=== PATIENT | female | born 1980 | race Caucasian/White ===

== ENCOUNTER 2021-11-19 11:55 | Observation (INO) | payer OTHER ==
[~2021-11-19] VITALS: Ht 160 cm; Wt 98.9 kg
== END 2021-11-19 13:25 | disposition home or self-care (01) ==
LOC: SPU 11:55
PROVIDERS: ADMIT Obstetrics & Gynecology; ATTEND Obstetrics & Gynecology
DX: O36.8130 Decreased fetal movements, third trimester, not applicable or unspecified (principal); O42.92 Full-term premature rupture of membranes, unspecified as to length of time between rupture and onset of labor; Z3A.37 37 weeks gestation of pregnancy
CPT/HCPCS: 81002; G0378

== ENCOUNTER 2021-11-20 10:36 | Inpatient (IN) | payer OTHER, SELFPAY ==
[~2021-11-20] VITALS: Ht 160 cm; Wt 98.9 kg
[2021-11-20] MEDS ORDERED: AMPICILLIN SODIUM 2 GM VIAL ONE (11:11)
[2021-11-20] MEDS ORDERED: AMPICILLIN SODIUM 2 GM in NS 100 ML IV ONE (11:15)
[2021-11-20] MEDS ORDERED: NALBUPHINE HCL 10 MG/ML AMP IVP PRN (11:15)
[2021-11-20] MEDS ORDERED: LR 1,000 ML IV SCH (11:15)
[2021-11-20] MEDS ORDERED: TERBUTALINE SULFATE 1 MG/ML VIAL SUBCUT ONE (11:15)
[2021-11-20] MEDS ORDERED: OXYTOCIN/0.9 % SODIUM CHLORIDE 1,000 ML IV SCH (11:15)
[2021-11-20 11:34] LABS: BASOPHILS # (AUTO) 0.2 K/uL (0.0-0.2); BASOPHILS % (AUTO) 1.9 % (0.0-2.0); EOSINOPHILS % (AUTO) 0.1 % (0.0-4.0); HEMATOCRIT 39.7 % (36-48); HEMOGLOBIN 13.4 g/dL (12.0-16.0); LYMPHOCYTES # (AUTO) 1.2 K/uL (1.0-5.5); LYMPHOCYTES % (AUTO) 12.4 % (20.5-51.5); MEAN CORPUSCULAR HEMOGLOBIN 30 pg (27-31); MEAN CORPUSCULAR HGB CONC 34 % (32-36); MEAN CORPUSCULAR VOLUME 89 fL (79.0-98.0); MONOCYTES # (AUTO) 0.4 K/uL (0.0-1.0); MONOCYTES % (AUTO) 3.8 % (1.7-9.3); NEUTROPHILS # (AUTO) 7.7 K/uL (1.8-7.7); NEUTROPHILS % (AUTO) 81.8 % (40.0-70.0); PLATELET COUNT (AUTO) 165 K/uL (130-430); RED BLOOD CELL COUNT(AUTO) 4.47 MIL/uL (4.2-6.2); RED CELL DISTRIBUTION WIDTH 14.8 % (9.0-15.0); WHITE BLOOD COUNT (AUTO) 9.5 K/uL (4.8-10.8)
[2021-11-20 11:39] VITALS: BP_SYST 135
[2021-11-20] MEDS ORDERED: AMPICILLIN SODIUM 1 GM in NS 50 ML IV SCH (15:30)
[2021-11-20] MEDS ORDERED: OXYTOCIN/0.9 % SODIUM CHLORIDE 1,000 ML IV ONE (17:45)
[2021-11-20] MEDS ORDERED: LANOLIN 7 GM OINT. TP PRN (17:45)
[2021-11-20] MEDS ORDERED: WITCH HAZEL LEAF 1 MED.PAD MED.PAD TP PRN (17:45)
[2021-11-20] MEDS ORDERED: DERMOPLAST SPRAY TP PRN (17:45)
[2021-11-20] MEDS ORDERED: DIPH-TET-PERTUS Vaccine 0.5 ML VIAL (ADACEL) I.M. PRN (17:45)
[2021-11-20] MEDS ORDERED: HYDROcodone/ACETAMIN 5-325 MG TAB (NORCO/ VICODIN) PO PRN (17:45)
[2021-11-20] MEDS ORDERED: OXYCODONE/ACETAMINOPHEN 5-325 TABLET PO PRN ×2 (17:45)
[2021-11-20] MEDS: IBUPROFEN 600 MG TABLET PO SCH ×2 (18:34→23:55)
[2021-11-21] MEDS: IBUPROFEN 600 MG TABLET PO SCH ×2 (05:54→12:23)
[2021-11-21 07:59] LABS: HEMATOCRIT 37.9 % (36-48); HEMOGLOBIN 12.6 g/dL (12.0-16.0)
[2021-11-21] MEDS ORDERED: DOCUSATE SODIUM 100 MG CAPSULE PO SCH (09:00)
== END 2021-11-21 18:15 | disposition home or self-care (01) | DRG 807 ==
LOC: OBSVTOIN 10:36 → SPU 10:36
PROVIDERS: ADMIT Obstetrics & Gynecology; ATTEND Obstetrics & Gynecology
PROC: 10E0XZZ Delivery of Products of Conception, External Approach (ICD-10-PCS; principal; 2021-11-20)
DX: O24.420 Gestational diabetes mellitus in childbirth, diet controlled (principal); Z37.0 Single live birth; O99.824 Streptococcus B carrier state complicating childbirth; Z20.822 Contact with and (suspected) exposure to COVID-19; Z3A.37 37 weeks gestation of pregnancy
CPT/HCPCS: 36415; 85018; 85025; 86592; 86886; 86900; 86901; 90715; J0290